=== PATIENT | male | born 1980 | race Two or more races ===

== ENCOUNTER 2018-01-05 04:17 | Emergency (ER) | payer SELFPAY ==
[~2018-01-05] VITALS: Ht 175.3 cm; Wt 99.8 kg
[2018-01-05 09:00] VITALS: BP 145/85
== END 2018-01-05 09:47 | disposition home or self-care (01) ==
LOC: ER 04:21
DX: S16.1XXA Strain of muscle, fascia and tendon at neck level, initial encounter (principal); S40.012A Contusion of left shoulder, initial encounter; S30.1XXA Contusion of abdominal wall, initial encounter; S09.90XA Unspecified injury of head, initial encounter; E11.9 Type 2 diabetes mellitus without complications; I10 Essential (primary) hypertension; F17.210 Nicotine dependence, cigarettes, uncomplicated; Z88.1 Allergy status to other antibiotic agents; V49.49XA Driver injured in collision with other motor vehicles in traffic accident, initial encounter; Y93.89 Activity, other specified; Y99.8 Other external cause status; Y92.9 Unspecified place or not applicable
CPT/HCPCS: 70450; 71250; 72125; 73030; 74176